=== PATIENT | female | born 1965 | race Native Hawaiian/Other Pacific Islander ===

== ENCOUNTER 2016-03-08 14:16 | Outpatient (CLI) | payer OTHER ==
[~2016-03-08 14:16] MED LIST: ALPR0.2566 PO; AMBIEN5 MG PO; CELEXA10 MG PO; NEXIUM40 M1 PO; TOPAMAX50 MG OR; VICODIN HP1 TA1 PO; WAL-PROFEN200 M1 PO; [UNRECOGNIZED DRUG - CODE] IM
== END 2016-03-08 15:16 | disposition home or self-care (01) ==
LOC: MAMMO 14:16
DX: N63 Unspecified lump in breast (principal); R20.8 Other disturbances of skin sensation
CPT/HCPCS: 77051; G0204-TC

== ENCOUNTER 2016-04-17 09:27 | Outpatient (CLI) | payer OTHER | END 2016-04-17 09:28 | disposition short-term general hospital (02) | LOC: AMB 09:27 | DX: R07.89 Other chest pain (principal); R06.02 Shortness of breath; M79.602 Pain in left arm; R11.0 Nausea | CPT/HCPCS: A0425; A0427 ==

== ENCOUNTER 2016-04-17 09:28 | Emergency (ER) | payer OTHER ==
[~2016-04-17] VITALS: Ht 152.4 cm; Wt 91.6 kg
[2016-04-17 09:28] VITALS: TEMP 98.1
[2016-04-17 09:47] LABS: PLATELET COUNT 198 K/uL (152-353)
[2016-04-17 10:02] LABS: POTASSIUM 3.7 mmol/L (3.6-5.2); SODIUM 137 mmol/L (136-145)
[2016-04-17 12:54] VITALS: BP 105/57
== END 2016-04-17 12:55 | disposition home or self-care (01) ==
LOC: ED 09:28
DX: R07.89 Other chest pain (principal); K21.9 Gastro-esophageal reflux disease without esophagitis; N39.0 Urinary tract infection, site not specified
CPT/HCPCS: 36415; 80053; 81000; 82550; 83036; 84484; 85027; 86318; 87086; 87088; 93005; 96374; 96375; 99284; J1885; J2270; J2405

== ENCOUNTER 2016-09-18 08:34 | Outpatient (CLI) | payer OTHER | END 2016-09-18 09:45 | disposition home or self-care (01) | LOC: US 08:34 | DX: N60.01 Solitary cyst of right breast (principal); Z80.3 Family history of malignant neoplasm of breast ==

== ENCOUNTER 2016-10-09 09:55 | Outpatient (CLI) | payer OTHER | END 2016-10-09 19:22 | disposition home or self-care (01) | LOC: MAMMO 09:55 | DX: N63 Unspecified lump in breast (principal); N60.01 Solitary cyst of right breast; Z80.3 Family history of malignant neoplasm of breast | CPT/HCPCS: G0206-TC ==

== ENCOUNTER 2017-04-13 08:49 | Outpatient (CLI) | payer OTHER | END 2017-04-13 21:04 | disposition home or self-care (01) | LOC: MAMMO 08:49 | DX: N60.01 Solitary cyst of right breast (principal) ==

== ENCOUNTER 2018-04-19 12:38 | Outpatient (CLI) | payer OTHER | END 2018-04-19 19:47 | disposition home or self-care (01) | LOC: MAMMO 12:38 | DX: N63.10 Unspecified lump in the right breast, unspecified quadrant (principal); Z80.3 Family history of malignant neoplasm of breast ==

== ENCOUNTER 2019-04-23 10:12 | Outpatient (CLI) | payer OTHER | END 2019-04-23 20:55 | disposition home or self-care (01) | LOC: MAMMO 10:12 | DX: Z80.3 Family history of malignant neoplasm of breast (principal); N63.10 Unspecified lump in the right breast, unspecified quadrant | CPT/HCPCS: G0279 ==

== ENCOUNTER 2019-09-27 10:41 | Inpatient (IN) | payer OTHER ==
[~2019-09-27] VITALS: Ht 157.5 cm; Wt 99.6 kg
[2019-09-27] VITALS (14 sets, daily range): BP systolic 106–158; BP diastolic 51–79; TEMP 99.1–103.3; Ht 157.5 cm; Wt 99.6 kg
[2019-09-27 11:07] LABS: PLATELET COUNT 202 K/uL (152-353)
[2019-09-27 12:38] LABS: POTASSIUM 3.4 mmol/L (3.6-5.2); SODIUM 136 mmol/L (136-145)
[2019-09-28] VITALS (20 sets, daily range): BP systolic 115–165; BP diastolic 50–87; TEMP 96.7–102.5
[2019-09-28 05:11] LABS: PLATELET COUNT 164 K/uL (152-353)
[2019-09-28 05:37] LABS: POTASSIUM 4.3 mmol/L (3.6-5.2)
[2019-09-28] MEDS ORDERED: PANTOPRAZOLE 40MG TA PO (23:28)
[2019-09-28] MEDS ORDERED: GAS RELIEF180 M1 PO (23:30)
[2019-09-28] MEDS ORDERED: INSUINJP SC (23:31)
[2019-09-28] MEDS ORDERED: NOVOLOG FL100 UNIT/M SC (23:36)
[2019-09-28] MEDS ORDERED: TYLENOL325 MG PO (23:39)
[2019-09-29] VITALS (15 sets, daily range): BP systolic 112–172; BP diastolic 54–82; TEMP 99.2–102.9
[2019-09-29 05:43] LABS: PLATELET COUNT 184 K/uL (152-353)
[2019-09-29 06:01] LABS: POTASSIUM 4.1 mmol/L (3.6-5.2)
[2019-09-30 06:54] LABS: PLATELET COUNT 152 K/uL (152-353)
[2019-09-30 07:01] LABS: POTASSIUM 3.3 mmol/L (3.6-5.2)
[2019-09-30 20:11] VITALS: BP 105/59; TEMP 97.3
[2019-10-01 00:16] VITALS: BP 112/59; TEMP 98.1
[2019-10-01 03:53] VITALS: BP 108/55; TEMP 98.6
[2019-10-01 06:39] LABS: PLATELET COUNT 143 K/uL (152-353)
[2019-10-01 06:43] LABS: POTASSIUM 3.6 mmol/L (3.6-5.2)
[2019-10-01 07:50] VITALS: BP 146/83; TEMP 97.3
[2019-10-01 12:00] VITALS: BP 136/82; TEMP 97.9
[2019-10-01 16:00] VITALS: BP 168/84; TEMP 97.8
[2019-10-01 20:44] VITALS: BP 166/78; TEMP 98.2
[2019-10-02 00:31] VITALS: BP 147/72; TEMP 98.6
[2019-10-02 05:16] LABS: POTASSIUM 3.7 mmol/L (3.6-5.2)
[2019-10-02 05:21] LABS: PLATELET COUNT 171 K/uL (152-353)
[2019-10-02 05:38] VITALS: BP 125/65; TEMP 97.8
[2019-10-02 08:00] VITALS: BP 129/60; TEMP 97.8
[2019-10-02 12:00] VITALS: BP 128/67; TEMP 97.5
[2019-10-02 20:00] VITALS: BP 165/83; TEMP 101.1
[2019-10-02 23:58] VITALS: BP 183/76; TEMP 98.3
[2019-10-03] VITALS (8 sets, daily range): BP systolic 127–215; BP diastolic 62–105; TEMP 97.9–99.7
[2019-10-03 04:51] LABS: POTASSIUM 2.8 mmol/L (3.6-5.2)
[2019-10-03 05:00] LABS: PLATELET COUNT 182 K/uL (152-353)
[2019-10-04 00:10] VITALS: BP 160/77; TEMP 100.3
[2019-10-04 04:00] VITALS: BP 161/82; TEMP 99.4
[2019-10-04 05:46] LABS: POTASSIUM 2.5 mmol/L (3.6-5.2)
[2019-10-04 05:57] LABS: PLATELET COUNT 215 K/uL (152-353)
[2019-10-04 08:00] VITALS: BP 175/89; TEMP 98.1
[2019-10-04 12:00] VITALS: BP 137/66; TEMP 98.1
[2019-10-04 20:19] VITALS: BP 138/73; TEMP 98.1
[2019-10-05] VITALS (7 sets, daily range): BP systolic 129–170; BP diastolic 71–86; TEMP 97.6–99.4
[2019-10-05 06:23] LABS: PLATELET COUNT 232 K/uL (152-353)
[2019-10-05 06:29] LABS: POTASSIUM 3.3 mmol/L (3.6-5.2)
[2019-10-06 04:18] VITALS: BP 181/83; TEMP 99.1
[2019-10-06 06:07] LABS: PLATELET COUNT 339 K/uL (152-353)
[2019-10-06 06:36] LABS: POTASSIUM 3.5 mmol/L (3.6-5.2)
[2019-10-06 08:05] VITALS: BP 188/98; TEMP 99.3
[2019-10-06 12:00] VITALS: BP 141/86; TEMP 98.9
[2019-10-06] MEDS ORDERED: CARV6.25 PO (15:09)
[2019-10-06] MEDS ORDERED: AMLODIPINE BESYLATE PO (15:09)
[2019-10-06] MEDS ORDERED: IPRAAER INH (15:10)
[2019-10-06 16:00] VITALS: BP 127/66; TEMP 97.8
== END 2019-10-06 16:10 | disposition home or self-care (01) | DRG 177 ==
LOC: ED 10:50 → ICU 13:55 → MED/SURG 09-29 15:01
PROVIDERS: Internal Medicine; Internal Medicine Endocrinology, Diabetes & Metabolism; ADMIT Emergency Medicine
PROC: 30233K1 Transfusion of Nonautologous Frozen Plasma into Peripheral Vein, Percutaneous Approach (ICD-10-PCS; principal; 2019-10-03)
DX: U07.1 COVID-19 (principal); J96.01 Acute respiratory failure with hypoxia; J18.8 Other pneumonia, unspecified organism; K50.90 Crohn's disease, unspecified, without complications; E66.8 Other obesity; I25.10 Atherosclerotic heart disease of native coronary artery without angina pectoris; M06.80 Other specified rheumatoid arthritis, unspecified site; K21.9 Gastro-esophageal reflux disease without esophagitis; F41.8 Other specified anxiety disorders; E11.65 Type 2 diabetes mellitus with hyperglycemia; M94.0 Chondrocostal junction syndrome [Tietze]
CPT/HCPCS: 36415; 36416; 80048; 80053; 81000; 81002; 82550; 82553; 83036; 83605; 83735; 84484; 85027; 85379; 86900; 86901; 87040; 87635; 93005; 94668; 94760; 96365; 96375; 99284; J0360; J0456; J0696; J1100; J1650; J1815; J1885; J2270; J2550; J2765; J3475; J3490; P9017; U00003

== ENCOUNTER 2019-10-07 18:39 | Observation (INO) | payer OTHER ==
[2019-10-07] VITALS (8 sets, daily range): BP systolic 124–153; BP diastolic 67–97; TEMP 98.7–98.9
[~2019-10-07] VITALS: Ht 157.5 cm; Wt 98.2 kg
[~2019-10-07 18:39] MED LIST changes: +AMLODIPINE BESYLATE PO; +CARV6.25 PO; +GAS RELIEF180 M1 PO; +INSUINJP SC; +IPRAAER INH; +NOVOLOG FL100 UNIT/M SC; +PANTOPRAZOLE 40MG TA PO; +TYLENOL325 MG PO
[2019-10-07 20:17] LABS: POTASSIUM 3.3 mmol/L (3.6-5.2)
[2019-10-07 20:29] LABS: PLATELET COUNT 335 K/uL (152-353)
[2019-10-08 02:50] VITALS: BP 97/61; TEMP 98.8; Ht 157.5 cm; Wt 98.2 kg
[2019-10-08 03:41] VITALS: BP 108/58; TEMP 98.8
[2019-10-08 08:00] VITALS: BP 161/89; TEMP 98.5
[2019-10-08 12:00] VITALS: BP 178/88; TEMP 97.8
== END 2019-10-08 15:40 | disposition home or self-care (01) ==
LOC: ED 18:44 → MED/SURG 21:28
PROVIDERS: Family Medicine; ADMIT Internal Medicine
DX: U07.1 COVID-19 (principal); J96.01 Acute respiratory failure with hypoxia; E11.9 Type 2 diabetes mellitus without complications; I25.10 Atherosclerotic heart disease of native coronary artery without angina pectoris; I25.2 Old myocardial infarction; K50.90 Crohn's disease, unspecified, without complications
CPT/HCPCS: 36415; 36600; 80053; 82805; 85027; 99220; 99283; 99284; G0378; J1815

== ENCOUNTER 2019-10-15 10:48 | Outpatient (CLI) | payer OTHER | END 2019-10-15 20:31 | disposition home or self-care (01) | LOC: MRI 10:48 | DX: R41.3 Other amnesia (principal) ==

== ENCOUNTER 2019-11-06 15:50 | Observation (INO) | payer OTHER ==
[~2019-11-06] VITALS: Ht 157.5 cm; Wt 102.1 kg
[2019-11-06 15:50] VITALS: BP 111/69; TEMP 98.1; Ht 157.5 cm; Wt 102.1 kg
[2019-11-06 18:30] LABS: PLATELET COUNT 284 K/uL (152-353)
[2019-11-06 18:33] LABS: POTASSIUM 3.7 mmol/L (3.6-5.2); SODIUM 138 mmol/L (136-145)
[2019-11-06] MEDS ORDERED: ISOSORBIDE ER PO (19:48)
[2019-11-06] MEDS ORDERED: ASPIRIN81 M1 PO (19:49)
[2019-11-06 19:50] VITALS: BP 109/56; TEMP 98
[2019-11-06] MEDS ORDERED: LIPITOR40 MG PO (19:52)
[2019-11-07 00:09] VITALS: BP 95/50; TEMP 97.6
[2019-11-07] MEDS ORDERED: CARV6.25 PO (02:03)
[2019-11-07 04:00] VITALS: BP 110/63; TEMP 97.8
[2019-11-07 08:00] VITALS: BP 107/58; TEMP 97.8
[2019-11-07 12:00] VITALS: BP 134/71; TEMP 97.8
--- NOTE | 2019-11-07 13:01 | NUR ---
Pt SpO2 96% ON RA O2 ON AT WALL DUE TO Pt HAVING O2 PER NC 2LPM @ HOME PRN
--- NOTE | 2019-11-07 13:17 | NUR ---
Patient is NPO and dx. of chest pain and is 5'2" and IBW 110+/-10% (99 to 121 lbs.) and kcal needs for IBW = 1200 to 1500 x 25 to 30 and x 35 to 40 = 1700 to 2000 kcal/day, protein needs x .8 to 1.5 = 40 to 75 grams per dya and fluids x 25 to 30 = 1200 to 1500 ml/cc per dya nad BMI = 41.15 and is CLass III Obesity highest class and is 205% of IBW. SOB, Dehydration, ortho, HTN and syncope. Elevated labs are WBC, RDW, BUN and gl 196 and those depressed are MCV, MCH, Ca, ASt, alt, creatine kinase, alb 3.0. is on insulin and o2. RD Recommendations: 1-Advance SEKOU to CLD not more than 24 hours and FLD not more than 72 hours 2-If can't advnace need TPN or TPN and lipids or a tube feeding. 0-Jhgeqzunlix-itcqmiqi fluids as tolerated per MD d/t CP 4-Suggest to advnace to a NCS High Fiber diet 5-PT to work with for movement and exercise if MD approves 6-Monitor labs 7-Add foods high in Calcium 8-Go over insulin when and how to use with verbal feedback.
[2019-11-07 14:40] LABS: PLATELET COUNT 262 K/uL (152-353)
[2019-11-07 14:56] LABS: POTASSIUM 3.9 mmol/L (3.6-5.2)
--- NOTE | 2019-11-07 17:05 | NUR ---
PT IV DC'D TIP INTACT NO REDNESS OR SWELLING NOTED. PT TOLERATED WELL. PT INSTRUCTED TO FOLLOW UP WITH DR. WARREN ON SUNDAY. PT STATES "OK I'LL GET THERE EARLY" PT INSTRUCTED TO STOP TAKING IMDUR. PT ALSO INSTRUCTED TO STOP TAKING COREG 12.5MG AND START TAKING 6.25MG EVERY 12 HOURS. PT INSTRUCTED TO CON'T TO USE O2 ONLY AT NIGHT UNTIL AFTER SLEEP STUDY. PT INSTUCTED TO KEEP APPT WITH [facility]ER ON SUNDAY. PT VERBALIZES UNDERSTANDING. INSTRUCTIONS GIVEN TO PT IN DISCHARGE AND HILIGHTED. PT'S HOME MEDS GIVEN BACK TO HER. SHOWED PT WHICH MEDICATION TO STOP. PT SHOWS WHICH MEDICATION THAT SHE WILL STOP. PT INSTRUCTED TO REPORT ANY DECREASE IN BLOOD PRESSURE, INCREASED FATIGUE, SYNCOPAL EPISODES, REPORT ANY FEVER. PT VERBALIZED UNDERSTANDING. PT COREG 6.25MG CALLED IN TO [facility]. PT INSTRUCTED TO NORMALIZER MEDICATION. PT VERBALIZED UNDERSTANDING. PT DISCHARGED VIA W/C. NAD NOTED.
== END 2019-11-07 17:20 | disposition home or self-care (01) ==
LOC: MED/SURG 15:50
PROVIDERS: ADMIT Family Medicine
DX: I95.1 Orthostatic hypotension (principal); R29.6 Repeated falls; E86.0 Dehydration; K50.90 Crohn's disease, unspecified, without complications
CPT/HCPCS: 80053; 82550; 82728; 83735; 84100; 84484; 85007; 85027; 85651; 86140; 87040; 93005; 94760; 99220; G0378; G0379; J2543

== ENCOUNTER 2020-02-09 15:40 | Outpatient (CLI) | payer OTHER ==
[~2020-02-09 15:40] MED LIST changes: +ASPIRIN81 M1 PO; +ISOSORBIDE ER PO; +LIPITOR40 MG PO
[2020-02-09 15:58] LABS: PLATELET COUNT 246 K/uL (152-353)
[2020-02-09 16:07] LABS: POTASSIUM 3.7 mmol/L (3.6-5.2); SODIUM 140 mmol/L (136-145)
== END 2020-02-09 19:09 | disposition home or self-care (01) ==
LOC: LABW 15:40
PROVIDERS: ATTEND Nurse Practitioner Family
DX: I25.2 Old myocardial infarction (principal)
CPT/HCPCS: 36415; 80053; 82550; 83880; 84484; 85027

== ENCOUNTER 2020-03-22 09:40 | Outpatient (CLI) | payer OTHER | END 2020-03-22 19:21 | disposition home or self-care (01) | LOC: RESP 09:40 | PROVIDERS: ATTEND Internal Medicine Sleep Medicine | DX: R06.02 Shortness of breath (principal) ==

== ENCOUNTER 2020-04-26 08:37 | Outpatient (CLI) | payer OTHER | END 2020-04-26 19:20 | disposition home or self-care (01) | LOC: MAMMO 08:37 | PROVIDERS: ATTEND Specialist | DX: Z12.31 Encounter for screening mammogram for malignant neoplasm of breast (principal) ==

== ENCOUNTER 2020-06-29 14:18 | Emergency (ER) | payer OTHER ==
[~2020-06-29] VITALS: Ht 157.5 cm; Wt 102.1 kg
[2020-06-29 14:28] VITALS: TEMP 98
[2020-06-29 15:38] LABS: PLATELET COUNT 262 K/uL (152-353)
[2020-06-29 15:48] LABS: POTASSIUM 3.8 mmol/L (3.6-5.2); SODIUM 137 mmol/L (136-145)
[2020-06-29 15:56] LABS: PARTIAL THROMBOPLASTIN TIME 21.9 SECONDS (24.5-33.6)
[2020-06-29 18:00] VITALS: BP 128/64
== END 2020-06-29 18:02 | disposition home or self-care (01) ==
LOC: ED 14:18
PROVIDERS: Family Medicine
DX: R07.89 Other chest pain (principal); R11.2 Nausea with vomiting, unspecified; E11.65 Type 2 diabetes mellitus with hyperglycemia; Z79.4 Long term (current) use of insulin
CPT/HCPCS: 80053; 81000; 82550; 82553; 84484; 85027; 85610; 85730; 99283; J1815; J2405

== ENCOUNTER 2020-07-28 12:51 | Outpatient (CLI) | payer OTHER ==
[~2020-07-28] VITALS: Ht 152.4 cm; Wt 98.4 kg
== END 2020-07-28 20:23 | disposition home or self-care (01) ==
LOC: DIABINF 12:51
PROVIDERS: ATTEND Internal Medicine Endocrinology, Diabetes & Metabolism
DX: E11.65 Type 2 diabetes mellitus with hyperglycemia (principal); Z79.4 Long term (current) use of insulin; E11.319 Type 2 diabetes mellitus with unspecified diabetic retinopathy without macular edema; E11.40 Type 2 diabetes mellitus with diabetic neuropathy, unspecified; I25.118 Atherosclerotic heart disease of native coronary artery with other forms of angina pectoris; E78.2 Mixed hyperlipidemia; I10 Essential (primary) hypertension; K76.0 Fatty (change of) liver, not elsewhere classified; K21.9 Gastro-esophageal reflux disease without esophagitis; E65 Localized adiposity; R21 Rash and other nonspecific skin eruption
CPT/HCPCS: 82948; 96365; 96366; 96521; J1815; J1817

== ENCOUNTER 2020-07-29 08:17 | Outpatient (CLI) | payer OTHER | END 2020-07-29 22:00 | disposition home or self-care (01) | LOC: LABW 08:17 | PROVIDERS: ATTEND Nurse Practitioner | DX: E78.5 Hyperlipidemia, unspecified (principal) | CPT/HCPCS: 36415; 80061 ==

== ENCOUNTER 2020-07-29 12:58 | Outpatient (CLI) | payer OTHER ==
[~2020-07-29] VITALS: Ht 152.4 cm; Wt 98.4 kg
== END 2020-07-29 22:00 | disposition home or self-care (01) ==
LOC: DIABINF 12:58
PROVIDERS: ATTEND Internal Medicine Endocrinology, Diabetes & Metabolism
DX: E11.65 Type 2 diabetes mellitus with hyperglycemia (principal); Z79.4 Long term (current) use of insulin; E11.319 Type 2 diabetes mellitus with unspecified diabetic retinopathy without macular edema; E11.40 Type 2 diabetes mellitus with diabetic neuropathy, unspecified; I25.118 Atherosclerotic heart disease of native coronary artery with other forms of angina pectoris; E78.2 Mixed hyperlipidemia; I10 Essential (primary) hypertension; K76.0 Fatty (change of) liver, not elsewhere classified; K21.9 Gastro-esophageal reflux disease without esophagitis; E65 Localized adiposity; R21 Rash and other nonspecific skin eruption
CPT/HCPCS: 82948; 96365; 96366; 96521; J1815; J1817

== ENCOUNTER 2020-08-04 12:42 | Outpatient (CLI) | payer OTHER ==
[~2020-08-04] VITALS: Ht 152.4 cm; Wt 98.4 kg
== END 2020-08-04 21:03 | disposition home or self-care (01) ==
LOC: DIABINF 12:42
PROVIDERS: ATTEND Internal Medicine Endocrinology, Diabetes & Metabolism
DX: E11.65 Type 2 diabetes mellitus with hyperglycemia (principal); Z79.4 Long term (current) use of insulin; E11.319 Type 2 diabetes mellitus with unspecified diabetic retinopathy without macular edema; E11.40 Type 2 diabetes mellitus with diabetic neuropathy, unspecified; I25.118 Atherosclerotic heart disease of native coronary artery with other forms of angina pectoris; E78.2 Mixed hyperlipidemia; I10 Essential (primary) hypertension; K76.0 Fatty (change of) liver, not elsewhere classified; K21.9 Gastro-esophageal reflux disease without esophagitis; E65 Localized adiposity; R21 Rash and other nonspecific skin eruption
CPT/HCPCS: 82948; 96365; 96366; 96521; J1815; J1817

== ENCOUNTER 2020-08-05 12:44 | Outpatient (CLI) | payer OTHER ==
[~2020-08-05] VITALS: Ht 152.4 cm; Wt 101.2 kg
== END 2020-08-05 23:50 | disposition home or self-care (01) ==
LOC: DIABINF 12:44
PROVIDERS: ATTEND Internal Medicine Endocrinology, Diabetes & Metabolism
DX: E11.65 Type 2 diabetes mellitus with hyperglycemia (principal); Z79.4 Long term (current) use of insulin; E11.319 Type 2 diabetes mellitus with unspecified diabetic retinopathy without macular edema; E11.40 Type 2 diabetes mellitus with diabetic neuropathy, unspecified; I25.118 Atherosclerotic heart disease of native coronary artery with other forms of angina pectoris; E78.2 Mixed hyperlipidemia; I10 Essential (primary) hypertension; K76.0 Fatty (change of) liver, not elsewhere classified; K21.9 Gastro-esophageal reflux disease without esophagitis; E65 Localized adiposity; R21 Rash and other nonspecific skin eruption; I50.9 Heart failure, unspecified; M94.0 Chondrocostal junction syndrome [Tietze]; W10.8XXA Fall (on) (from) other stairs and steps, initial encounter
CPT/HCPCS: 82948; 96365; 96366; 96521; J1815; J1817

== ENCOUNTER 2020-08-05 15:53 | Outpatient (CLI) | payer OTHER | END 2020-08-05 23:50 | disposition home or self-care (01) | LOC: RAD 15:53 | PROVIDERS: ATTEND Internal Medicine Endocrinology, Diabetes & Metabolism | DX: R06.00 Dyspnea, unspecified (principal) ==

== ENCOUNTER 2020-08-11 12:32 | Outpatient (CLI) | payer OTHER ==
[~2020-08-11] VITALS: Ht 152.4 cm; Wt 101.2 kg
== END 2020-08-11 23:04 | disposition home or self-care (01) ==
LOC: DIABINF 12:32
PROVIDERS: ATTEND Internal Medicine Endocrinology, Diabetes & Metabolism
DX: E11.65 Type 2 diabetes mellitus with hyperglycemia (principal); Z79.4 Long term (current) use of insulin; E11.319 Type 2 diabetes mellitus with unspecified diabetic retinopathy without macular edema; E11.40 Type 2 diabetes mellitus with diabetic neuropathy, unspecified; I25.118 Atherosclerotic heart disease of native coronary artery with other forms of angina pectoris; E78.2 Mixed hyperlipidemia; I10 Essential (primary) hypertension; K76.0 Fatty (change of) liver, not elsewhere classified; K21.9 Gastro-esophageal reflux disease without esophagitis; E65 Localized adiposity; R21 Rash and other nonspecific skin eruption; I50.9 Heart failure, unspecified; W19.XXXA Unspecified fall, initial encounter; M94.0 Chondrocostal junction syndrome [Tietze]; H53.8 Other visual disturbances
CPT/HCPCS: 82948; 96365; 96366; 96521; J1815; J1817

== ENCOUNTER 2020-08-12 12:46 | Outpatient (CLI) | payer OTHER ==
[~2020-08-12] VITALS: Ht 152.4 cm; Wt 101.2 kg
== END 2020-08-12 22:48 | disposition home or self-care (01) ==
LOC: DIABINF 12:46
PROVIDERS: ATTEND Internal Medicine Endocrinology, Diabetes & Metabolism
DX: E11.65 Type 2 diabetes mellitus with hyperglycemia (principal); Z79.4 Long term (current) use of insulin; E11.319 Type 2 diabetes mellitus with unspecified diabetic retinopathy without macular edema; E11.40 Type 2 diabetes mellitus with diabetic neuropathy, unspecified; I25.118 Atherosclerotic heart disease of native coronary artery with other forms of angina pectoris; E78.2 Mixed hyperlipidemia; I10 Essential (primary) hypertension; K76.0 Fatty (change of) liver, not elsewhere classified; K21.9 Gastro-esophageal reflux disease without esophagitis; E65 Localized adiposity; R21 Rash and other nonspecific skin eruption; I50.9 Heart failure, unspecified; G45.8 Other transient cerebral ischemic attacks and related syndromes
CPT/HCPCS: 82948; 96365; 96366; 96521; J1815; J1817

== ENCOUNTER 2020-08-18 07:41 | Outpatient (CLI) | payer OTHER ==
[~2020-08-18] VITALS: Ht 152.4 cm; Wt 101.2 kg
== END 2020-08-18 22:16 | disposition home or self-care (01) ==
LOC: DIABINF 07:41
PROVIDERS: ATTEND Internal Medicine Endocrinology, Diabetes & Metabolism
DX: E11.65 Type 2 diabetes mellitus with hyperglycemia (principal); E11.40 Type 2 diabetes mellitus with diabetic neuropathy, unspecified; Z79.4 Long term (current) use of insulin; I25.10 Atherosclerotic heart disease of native coronary artery without angina pectoris; K21.9 Gastro-esophageal reflux disease without esophagitis; K76.0 Fatty (change of) liver, not elsewhere classified; Z86.73 Personal history of transient ischemic attack (TIA), and cerebral infarction without residual deficits; E11.319 Type 2 diabetes mellitus with unspecified diabetic retinopathy without macular edema; E66.01 Morbid (severe) obesity due to excess calories; Z68.41 Body mass index [BMI] 40.0-44.9, adult
CPT/HCPCS: 82948; 96365; 96366; 96521; J1815; J1817

== ENCOUNTER 2020-08-19 07:37 | Outpatient (CLI) | payer OTHER ==
[~2020-08-19] VITALS: Ht 152.4 cm; Wt 101.2 kg
== END 2020-08-19 11:30 | disposition home or self-care (01) ==
LOC: DIABINF 07:37
PROVIDERS: ATTEND Internal Medicine Endocrinology, Diabetes & Metabolism
DX: E11.65 Type 2 diabetes mellitus with hyperglycemia (principal); Z79.4 Long term (current) use of insulin; Z79.899 Other long term (current) drug therapy; E78.49 Other hyperlipidemia; I10 Essential (primary) hypertension; E11.40 Type 2 diabetes mellitus with diabetic neuropathy, unspecified; K76.0 Fatty (change of) liver, not elsewhere classified; E66.01 Morbid (severe) obesity due to excess calories; Z68.41 Body mass index [BMI] 40.0-44.9, adult; Z71.3 Dietary counseling and surveillance
CPT/HCPCS: 82948; 96365; 96366; 96521; J1815; J1817

== ENCOUNTER 2020-08-25 07:29 | Outpatient (CLI) | payer OTHER ==
[~2020-08-25] VITALS: Ht 152.4 cm; Wt 101.2 kg
== END 2020-08-25 11:30 | disposition home or self-care (01) ==
LOC: DIABINF 07:29
PROVIDERS: ATTEND Internal Medicine Endocrinology, Diabetes & Metabolism
DX: E11.65 Type 2 diabetes mellitus with hyperglycemia (principal); E11.40 Type 2 diabetes mellitus with diabetic neuropathy, unspecified; E11.319 Type 2 diabetes mellitus with unspecified diabetic retinopathy without macular edema; I25.10 Atherosclerotic heart disease of native coronary artery without angina pectoris; K76.0 Fatty (change of) liver, not elsewhere classified; I10 Essential (primary) hypertension; E78.2 Mixed hyperlipidemia; K21.9 Gastro-esophageal reflux disease without esophagitis
CPT/HCPCS: 82948; 96365; 96366; 96521; J1815; J1817

== ENCOUNTER 2020-09-01 07:32 | Outpatient (CLI) | payer OTHER ==
[~2020-09-01] VITALS: Ht 152.4 cm; Wt 101.2 kg
== END 2020-09-01 11:30 | disposition home or self-care (01) ==
LOC: DIABINF 07:32
PROVIDERS: ATTEND Nurse Practitioner
DX: E11.65 Type 2 diabetes mellitus with hyperglycemia (principal); E11.40 Type 2 diabetes mellitus with diabetic neuropathy, unspecified; Z79.4 Long term (current) use of insulin; I25.10 Atherosclerotic heart disease of native coronary artery without angina pectoris; K21.9 Gastro-esophageal reflux disease without esophagitis; K76.0 Fatty (change of) liver, not elsewhere classified; Z86.73 Personal history of transient ischemic attack (TIA), and cerebral infarction without residual deficits; E11.319 Type 2 diabetes mellitus with unspecified diabetic retinopathy without macular edema; E66.01 Morbid (severe) obesity due to excess calories; Z68.41 Body mass index [BMI] 40.0-44.9, adult
CPT/HCPCS: 82948; 96365; 96366; 96521; 99214; J1815; J1817

== ENCOUNTER 2020-09-08 07:45 | Outpatient (CLI) | payer OTHER ==
[~2020-09-08] VITALS: Ht 152.4 cm; Wt 101.2 kg
== END 2020-09-08 22:08 | disposition home or self-care (01) ==
LOC: DIABINF 07:45
PROVIDERS: ATTEND Nurse Practitioner
DX: E11.65 Type 2 diabetes mellitus with hyperglycemia (principal); E11.40 Type 2 diabetes mellitus with diabetic neuropathy, unspecified; Z79.4 Long term (current) use of insulin; I25.10 Atherosclerotic heart disease of native coronary artery without angina pectoris; K21.9 Gastro-esophageal reflux disease without esophagitis; K76.0 Fatty (change of) liver, not elsewhere classified; Z86.73 Personal history of transient ischemic attack (TIA), and cerebral infarction without residual deficits; E11.319 Type 2 diabetes mellitus with unspecified diabetic retinopathy without macular edema; E66.01 Morbid (severe) obesity due to excess calories; Z68.41 Body mass index [BMI] 40.0-44.9, adult
CPT/HCPCS: 82948; 96365; 96366; 96521; J1815; J1817

== ENCOUNTER 2020-09-14 07:49 | Outpatient (CLI) | payer OTHER ==
[~2020-09-14] VITALS: Ht 152.4 cm; Wt 101.2 kg
== END 2020-09-14 21:47 | disposition home or self-care (01) ==
LOC: DIABINF 07:49
PROVIDERS: ATTEND Nurse Practitioner
DX: E11.65 Type 2 diabetes mellitus with hyperglycemia (principal); E11.40 Type 2 diabetes mellitus with diabetic neuropathy, unspecified; Z79.4 Long term (current) use of insulin; I25.10 Atherosclerotic heart disease of native coronary artery without angina pectoris; K21.9 Gastro-esophageal reflux disease without esophagitis; K76.0 Fatty (change of) liver, not elsewhere classified; Z86.73 Personal history of transient ischemic attack (TIA), and cerebral infarction without residual deficits; E11.319 Type 2 diabetes mellitus with unspecified diabetic retinopathy without macular edema; E66.01 Morbid (severe) obesity due to excess calories; Z68.41 Body mass index [BMI] 40.0-44.9, adult
CPT/HCPCS: 82948; 96365; 96366; 96521; J1815; J1817

== ENCOUNTER 2020-09-22 07:37 | Outpatient (CLI) | payer OTHER ==
[~2020-09-22] VITALS: Ht 152.4 cm; Wt 101.2 kg
== END 2020-09-22 19:20 | disposition home or self-care (01) ==
LOC: DIABINF 07:37
PROVIDERS: ATTEND Nurse Practitioner
DX: E11.65 Type 2 diabetes mellitus with hyperglycemia (principal); E11.40 Type 2 diabetes mellitus with diabetic neuropathy, unspecified; Z79.4 Long term (current) use of insulin; I25.10 Atherosclerotic heart disease of native coronary artery without angina pectoris; K21.9 Gastro-esophageal reflux disease without esophagitis; K76.0 Fatty (change of) liver, not elsewhere classified; Z86.73 Personal history of transient ischemic attack (TIA), and cerebral infarction without residual deficits; E11.319 Type 2 diabetes mellitus with unspecified diabetic retinopathy without macular edema; E66.01 Morbid (severe) obesity due to excess calories; Z68.41 Body mass index [BMI] 40.0-44.9, adult
CPT/HCPCS: 82948; 96365; 96366; 96521; J1815; J1817

== ENCOUNTER 2020-09-29 07:39 | Outpatient (CLI) | payer OTHER ==
[~2020-09-29] VITALS: Ht 152.4 cm; Wt 101.2 kg
== END 2020-09-29 23:24 | disposition home or self-care (01) ==
LOC: DIABINF 07:39
PROVIDERS: ATTEND Nurse Practitioner
DX: E11.65 Type 2 diabetes mellitus with hyperglycemia (principal); Z79.4 Long term (current) use of insulin; E11.319 Type 2 diabetes mellitus with unspecified diabetic retinopathy without macular edema; E11.40 Type 2 diabetes mellitus with diabetic neuropathy, unspecified; I25.118 Atherosclerotic heart disease of native coronary artery with other forms of angina pectoris; E78.2 Mixed hyperlipidemia; I10 Essential (primary) hypertension; K76.0 Fatty (change of) liver, not elsewhere classified; K21.9 Gastro-esophageal reflux disease without esophagitis; E65 Localized adiposity; R21 Rash and other nonspecific skin eruption; I50.9 Heart failure, unspecified; G45.8 Other transient cerebral ischemic attacks and related syndromes
CPT/HCPCS: 82948; 96365; 96366; 96521; J1815; J1817

== ENCOUNTER 2020-10-06 07:48 | Outpatient (CLI) | payer OTHER ==
[~2020-10-06] VITALS: Ht 152.4 cm; Wt 101.2 kg
== END 2020-10-06 13:00 | disposition home or self-care (01) ==
LOC: DIABINF 07:48
PROVIDERS: ATTEND Nurse Practitioner
DX: E11.65 Type 2 diabetes mellitus with hyperglycemia (principal); Z79.4 Long term (current) use of insulin; E11.319 Type 2 diabetes mellitus with unspecified diabetic retinopathy without macular edema; E11.40 Type 2 diabetes mellitus with diabetic neuropathy, unspecified; I25.118 Atherosclerotic heart disease of native coronary artery with other forms of angina pectoris; E78.2 Mixed hyperlipidemia; I10 Essential (primary) hypertension; K76.0 Fatty (change of) liver, not elsewhere classified; K21.9 Gastro-esophageal reflux disease without esophagitis; E65 Localized adiposity; R21 Rash and other nonspecific skin eruption; I50.9 Heart failure, unspecified; G45.8 Other transient cerebral ischemic attacks and related syndromes
CPT/HCPCS: 82948; 96365; 96366; 96521; J1815; J1817

== ENCOUNTER 2020-10-13 07:36 | Outpatient (CLI) | payer OTHER ==
[~2020-10-13] VITALS: Ht 152.4 cm; Wt 101.2 kg
== END 2020-10-13 18:53 | disposition home or self-care (01) ==
LOC: DIABINF 07:36
PROVIDERS: ATTEND Nurse Practitioner
DX: E11.65 Type 2 diabetes mellitus with hyperglycemia (principal); E11.40 Type 2 diabetes mellitus with diabetic neuropathy, unspecified; H35.00 Unspecified background retinopathy; I25.10 Atherosclerotic heart disease of native coronary artery without angina pectoris; K76.0 Fatty (change of) liver, not elsewhere classified; I10 Essential (primary) hypertension; E78.2 Mixed hyperlipidemia; K21.9 Gastro-esophageal reflux disease without esophagitis
CPT/HCPCS: 82948; 96365; 96366; 96521; J1815; J1817

== ENCOUNTER 2020-10-20 07:47 | Outpatient (CLI) | payer OTHER ==
[~2020-10-20] VITALS: Ht 152.4 cm; Wt 101.2 kg
[2020-10-20 10:03] LABS: PLATELET COUNT 206 K/uL (152-353)
[2020-10-20 10:10] LABS: POTASSIUM 3.6 mmol/L (3.6-5.2)
[2020-10-20 12:59] LABS: LDL CHOLESTEROL 118.1 mg/dL (0-99*)
== END 2020-10-20 21:06 | disposition home or self-care (01) ==
LOC: DIABINF 07:47
PROVIDERS: ATTEND Nurse Practitioner Family
DX: E11.65 Type 2 diabetes mellitus with hyperglycemia (principal); E11.40 Type 2 diabetes mellitus with diabetic neuropathy, unspecified; H35.00 Unspecified background retinopathy; I25.10 Atherosclerotic heart disease of native coronary artery without angina pectoris; K76.0 Fatty (change of) liver, not elsewhere classified; I10 Essential (primary) hypertension; E78.2 Mixed hyperlipidemia; K21.9 Gastro-esophageal reflux disease without esophagitis; E83.42 Hypomagnesemia; R25.2 Cramp and spasm
CPT/HCPCS: 80053; 80061; 82306; 82948; 83036; 83735; 85027; 96365; 96366; 96521; J1815; J1817

== ENCOUNTER 2020-10-24 16:26 | Inpatient (IN) | payer OTHER ==
[2020-10-24] VITALS (13 sets, daily range): BP systolic 127–188; BP diastolic 57–86; TEMP 98.1
[~2020-10-24] VITALS: Ht 172.7 cm; Wt 101.3 kg
[2020-10-24 16:57] LABS: PLATELET COUNT 234 K/uL (152-353)
[2020-10-24 17:02] LABS: POTASSIUM 3.7 mmol/L (3.6-5.2); SODIUM 140 mmol/L (136-145)
[2020-10-24 17:07] LABS: PARTIAL THROMBOPLASTIN TIME 23.6 SECONDS (24.5-33.6)
[2020-10-25 00:16] VITALS: BP 133/56; TEMP 97.2; Ht 172.7 cm; Wt 101.3 kg
[2020-10-25 00:34] VITALS: BP 116/64; TEMP 97.8
[2020-10-25] MEDS ORDERED: FURO20TA67 PO (02:04)
[2020-10-25] MEDS ORDERED: ENTRESTO 49-511 TAB PO (02:05)
[2020-10-25] MEDS ORDERED: CARV12.5 PO (02:07)
[2020-10-25] MEDS ORDERED: RANOLAZINE ER500 MG PO (02:08)
[2020-10-25] MEDS ORDERED: GLIP10TA55 PO (02:09)
[2020-10-25] MEDS ORDERED: GABA100C2 PO (02:10)
[2020-10-25 04:00] VITALS: BP 133/65; TEMP 98; TEMP 98.1
[2020-10-25 08:00] VITALS: BP 126/53; TEMP 98.4
[2020-10-25 12:00] VITALS: BP 157/76; TEMP 97.6
[2020-10-25 13:12] LABS: POTASSIUM 3.7 mmol/L (3.6-5.2)
[2020-10-25 14:28] LABS: PLATELET COUNT 204 K/uL (152-353)
[2020-10-25 16:00] VITALS: BP 142/72; TEMP 98.4
--- NOTE | 2020-10-25 20:02 | NUR ---
PT WAS GIVEN DISCHARGE INSTRUCTIONS. PT WAS GIVEN HOME MEDICATIONS. RX FOR PLAVIX 75 MG PO DAILY. PT VOICED UNDERSTANDING OF INSTRUCTIONS. WHEELCHAIRED PT OUT. GRANDDAUGHTER PICKED HER UP.
== END 2020-10-25 19:45 | disposition home or self-care (01) | DRG 69 ==
LOC: ED 16:29 → MED/SURG 20:00
PROVIDERS: Internal Medicine; ADMIT Hospitalist; ATTEND Family Medicine
DX: G45.8 Other transient cerebral ischemic attacks and related syndromes (principal); K50.90 Crohn's disease, unspecified, without complications; R41.82 Altered mental status, unspecified; R06.02 Shortness of breath; R07.89 Other chest pain; R47.81 Slurred speech; E11.9 Type 2 diabetes mellitus without complications; I10 Essential (primary) hypertension; K21.9 Gastro-esophageal reflux disease without esophagitis; Z86.73 Personal history of transient ischemic attack (TIA), and cerebral infarction without residual deficits
CPT/HCPCS: 80053; 80307; 80320; 81000; 82550; 83735; 83880; 84100; 84484; 85027; 85379; 85610; 85730; 87635; 93005; 96372; 96374; 96375; 99284; J1200; J1650; J1885; J2270; J2405; Q9963; U0003

== ENCOUNTER 2020-10-27 07:30 | Outpatient (CLI) | payer OTHER ==
[~2020-10-27 07:30] MED LIST changes: +CARV12.5 PO; +ENTRESTO 49-511 TAB PO; +FURO20TA67 PO; +GABA100C2 PO; +GLIP10TA55 PO; +RANOLAZINE ER500 MG PO
== END 2020-10-27 19:03 | disposition home or self-care (01) ==
LOC: DIABINF 07:30
PROVIDERS: ATTEND Nurse Practitioner Family
DX: E11.65 Type 2 diabetes mellitus with hyperglycemia (principal); E11.40 Type 2 diabetes mellitus with diabetic neuropathy, unspecified; H35.00 Unspecified background retinopathy; I25.10 Atherosclerotic heart disease of native coronary artery without angina pectoris; K76.0 Fatty (change of) liver, not elsewhere classified; I10 Essential (primary) hypertension; E78.2 Mixed hyperlipidemia; K21.9 Gastro-esophageal reflux disease without esophagitis; E83.42 Hypomagnesemia
CPT/HCPCS: 82948; 96365; 96366; 96521; J1817

== ENCOUNTER 2020-11-03 07:35 | Outpatient (CLI) | payer OTHER ==
[~2020-11-03] VITALS: Ht 152.4 cm; Wt 101.2 kg
== END 2020-11-03 23:00 | disposition home or self-care (01) ==
LOC: DIABINF 07:35
PROVIDERS: ATTEND Nurse Practitioner Family
DX: E11.65 Type 2 diabetes mellitus with hyperglycemia (principal); E11.40 Type 2 diabetes mellitus with diabetic neuropathy, unspecified; H35.00 Unspecified background retinopathy; I25.10 Atherosclerotic heart disease of native coronary artery without angina pectoris; K76.0 Fatty (change of) liver, not elsewhere classified; I10 Essential (primary) hypertension; E78.2 Mixed hyperlipidemia; K21.9 Gastro-esophageal reflux disease without esophagitis; E83.42 Hypomagnesemia
CPT/HCPCS: 82948; 96365; 96366; 96521; J1815; J1817

== ENCOUNTER 2021-01-04 08:48 | Outpatient (CLI) | payer OTHER | END 2021-01-04 21:18 | disposition home or self-care (01) | LOC: US 08:48 | PROVIDERS: ATTEND Internal Medicine Cardiovascular Disease | DX: R55 Syncope and collapse (principal) ==

== ENCOUNTER 2021-01-10 09:45 | Outpatient (CLI) | payer OTHER ==
[2021-01-10 10:12] LABS: POTASSIUM 4.3 mmol/L (3.6-5.2)
[2021-01-10 10:29] LABS: PLATELET COUNT 234 K/uL (152-353)
== END 2021-01-10 20:04 | disposition home or self-care (01) ==
LOC: LABW 09:45
PROVIDERS: ATTEND Nurse Practitioner
DX: E11.42 Type 2 diabetes mellitus with diabetic polyneuropathy (principal); I10 Essential (primary) hypertension; E78.2 Mixed hyperlipidemia; K21.9 Gastro-esophageal reflux disease without esophagitis
CPT/HCPCS: 36415; 80053; 80061; 84439; 84443; 85027

== ENCOUNTER 2021-08-30 08:32 | Outpatient (CLI) | payer BC, OTHER | END 2021-08-30 20:35 | disposition home or self-care (01) | LOC: CT 08:32 | PROVIDERS: ATTEND Internal Medicine Endocrinology, Diabetes & Metabolism | DX: K52.89 Other specified noninfective gastroenteritis and colitis (principal); N39.3 Stress incontinence (female) (male); R19.4 Change in bowel habit; K92.1 Melena; R10.11 Right upper quadrant pain; R10.12 Left upper quadrant pain | CPT/HCPCS: 36415; 82565; 84520; Q9963 ==

== ENCOUNTER 2021-11-17 15:19 | Outpatient (CLI) | payer BC, OTHER | END 2021-11-17 20:55 | disposition home or self-care (01) | LOC: MAMMO 15:19 | PROVIDERS: ATTEND Internal Medicine Endocrinology, Diabetes & Metabolism | DX: Z12.31 Encounter for screening mammogram for malignant neoplasm of breast (principal) ==

== ENCOUNTER 2022-03-02 14:57 | Emergency (ER) | payer BC ==
[~2022-03-02] VITALS: Ht 172.7 cm; Wt 109.3 kg
[2022-03-02 15:08] VITALS: TEMP 98
[2022-03-02 16:19] LABS: POTASSIUM 3.9 mmol/L (3.6-5.2)
[2022-03-02 16:22] LABS: PLATELET COUNT 252 K/uL (152-353)
[2022-03-02 16:50] LABS: PARTIAL THROMBOPLASTIN TIME 23.3 SECONDS (24.5-33.6)
[2022-03-02 18:12] VITALS: BP 145/68
== END 2022-03-02 18:20 | disposition home or self-care (01) ==
LOC: ED 14:57
PROVIDERS: Emergency Medicine
DX: R07.89 Other chest pain (principal); Z98.890 Other specified postprocedural states
CPT/HCPCS: 36415; 80053; 81002; 83690; 84484; 85027; 85379; 85610; 85730; 93005; 96374; 96375; 99284; J2270; J2405; J3490

== ENCOUNTER 2022-05-02 17:47 | Outpatient (CLI) | payer OTHER | END 2022-05-02 19:01 | disposition home or self-care (01) | LOC: RAD 17:47 | PROVIDERS: ATTEND Nurse Practitioner Family | DX: R04.2 Hemoptysis (principal) ==

== ENCOUNTER 2022-07-26 16:04 | Outpatient (CLI) | payer OTHER | END 2022-07-26 19:11 | disposition home or self-care (01) | LOC: RAD 16:04 | PROVIDERS: ATTEND Nurse Practitioner Family | DX: M25.552 Pain in left hip (principal); M25.562 Pain in left knee; M79.672 Pain in left foot ==

== ENCOUNTER 2022-09-18 14:54 | Outpatient (CLI) | payer OTHER | END 2022-09-18 19:13 | disposition home or self-care (01) | LOC: US 14:54 | PROVIDERS: ATTEND Nurse Practitioner Family | DX: R22.1 Localized swelling, mass and lump, neck (principal) ==